=== PATIENT | female | born 1995 | race American Indian/Alaskan Native ===

== ENCOUNTER 2017-07-22 23:50 | Emergency (ER) | payer SELFPAY ==
[2017-07-23 01:14] VITALS: BP 113/60
[2017-07-23] MEDS ORDERED: MOTRIN PO ONE (01:42)
[2017-07-23] MEDS ORDERED: DELTASONE PO ONE (01:44)
[2017-07-23] MEDS ORDERED: BICILLIN L-A IM ONE (01:51)
--- NOTE | 2017-07-23 01:51 | Emergency Department Report ---
HPI - General Chief Complaint: Sore Throat Time Seen by Provider: 07/23/17 01:42 - HPI HPI: 22-year-old female comes in stating that she feels like her throat is swelling up and having difficulty swallowing. Patient complains of sore throat that started about 4 AM last night. Patient denies any fever she does admit to a headache denies abdominal pain or nausea. She does report a cough. She has not taken any medication at this time she has no past medical history and currently has no known drug allergies. LMP 07/15/2017. ED Past Medical Hx - Past Medical History Previous Medical History?: No Additional medical history: dx of heart murmur at , abnormal long menstrual cycles - Surgical History Past Surgical History?: No - Social History Smoking Status: Never Smoker Substance Use Type: None - Medications Home Medications: Home Medications Medication Instructions Recorded Confirmed Last Taken Type HYDROcodone/APAP 5-325 [[place] 1 each PO Q6HR PRN #20 tablet 12/19/14 Unknown Rx 5-325 mg TAB] Nitrofurantoin [place]/M-Cryst 100 mg PO Q12HR #14 capsule 12/19/14 Unknown Rx [Macrobid CAP] Ibuprofen 600 mg PO Q8H #15 tablet 07/23/17 Unknown Rx ED Review of Systems ROS: Stated complaint: SORE THROAT Other details as noted in HPI Constitutional: denies: chills, fever Eyes: denies: eye pain, eye discharge, vision change ENT: throat pain Respiratory: cough Cardiovascular: denies: chest pain, palpitations Endocrine: no symptoms reported Gastrointestinal: denies: abdominal pain, nausea, diarrhea Genitourinary: denies: urgency, dysuria, discharge Musculoskeletal: denies: back pain, joint swelling, arthralgia Skin: denies: rash, lesions Neurological: headache Psychiatric: denies: anxiety, depression Hematological/Lymphatic: denies: easy bleeding, easy bruising Physical Exam - Physical Exam Vital Signs: Vital Signs 07/23/17 01:05 Temperature 98.4 F Pulse Rate 78 Respiratory 16 Rate Blood Pressure 113/60 O2 Sat by Pulse 100 Oximetry Physical Exam: GENERAL: Alert and oriented x3, no apparent distress, Normal Gait, atraumatic. HEAD: Head is normocephalic and a-traumatic. EYES: Extra ocular muscles are intact. Pupils are equal, round, and reactive to light and accommodation. EARS: symetrical, atraumatic, non tender, ear canal clear and moderate cerumen, tympanic membrance non inflamed. gross auditory nml bilaterally. NOSE: Nose symetrical, Nontender,Nares appeared normal. MOUTH:Mouth is well hydrated and without lesions. Tonsils erythematous and swollen, Uvula midline, Tongue not elevated. Mucous membranes are moist. Posterior pharynx clear, positive exudate. Patent airways. NECK: Supple. Non edematous, No carotid bruits. Positive lymphadenopathy negative thyromegaly. LUNGS: Symetrical with respiration, No wheezing, no rales or crackles, CTAB. HEART: S1, S2 present, regular rate and rhythm without murmur, no rubs, no gallops. ABDOMEN: No organomegaly was noted,Positive bowel sounds, soft, and non- distended. . Nontender to palpation on all Quadrants, PSYCHIATRIC: Mood is congruent with affect, denies suicidal or homicidal ideations. SKIN: Warm and dry, No lesions, No ulceration or induration present ED Course Vital Signs 07/23/17 01:05 Temperature 98.4 F Pulse Rate 78 Respiratory 16 Rate Blood Pressure 113/60 O2 Sat by Pulse 100 Oximetry ED Medical Decision Making - Medical Decision Making Patient has been evaluated by this provider fast track. Rapid strep was ordered ibuprofen ordered. As well as prednisone 20 mg. Critical care attestation.: If time is entered above; I have spent that time in minutes in the direct care of this critically ill patient, excluding procedure time. ED Disposition Clinical Impression: Pharyngitis Qualifiers: Pharyngitis/tonsillitis etiology: unspecified etiology Qualified Code(s): J02.9 - Acute pharyngitis, unspecified Disposition: DC-01 TO HOME OR SELFCARE Is pt being admited?: No Does the pt Need Aspirin: No Condition: Stable Instructions: Pharyngitis (ED) Additional Instructions: Drink plenty of fluids. Take pain medication as prescribed. Follow up with her primary care provider in 5-7 days if symptoms persist or gets worse. Prescriptions: Ibuprofen 600 mg PO Q8H #15 tablet Referrals: PRIMARY CARE, [Primary Care Provider] - 3-5 Days Forms: Work/School Release Form(ED), Accompanied Note
== END 2017-07-23 02:28 | disposition home or self-care (01) ==
LOC: ED 23:50
DX: J02.9 Acute pharyngitis, unspecified (principal)
CPT/HCPCS: 87116; 87430; 96372; 99283; J0561; J7512

== ENCOUNTER 2018-07-07 04:47 | Emergency (ER) | payer OTHER ==
[2018-07-07] MEDS ORDERED: TYLENOL ONE (04:58)
[2018-07-07] MEDS ORDERED: TYLENOL PO ONE (05:01)
[2018-07-07] MEDS ORDERED: ULTRAM PO ONE (05:21)
[2018-07-07] MEDS ORDERED: ULTRAM ONE (05:24)
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
[2018-07-09 11:23] VITALS: BP 87/41
== END 2018-07-07 06:40 | disposition home or self-care (01) ==
LOC: ED 04:47
DX: S39.012A Strain of muscle, fascia and tendon of lower back, initial encounter (principal); S46.911A Strain of unspecified muscle, fascia and tendon at shoulder and upper arm level, right arm, initial encounter; V49.49XA Driver injured in collision with other motor vehicles in traffic accident, initial encounter; Y93.89 Activity, other specified; Y92.89 Other specified places as the place of occurrence of the external cause; Y99.8 Other external cause status
CPT/HCPCS: 72100